=== PATIENT | female | born 2000 | race Caucasian/White ===

== ENCOUNTER 2024-01-08 23:50 | Emergency (ER) | payer OTHER, SELFPAY ==
--- NOTE | ~2024-01-08 | CT_ITS ---
Noncontrast CT scan of the cervical spine Technique: Multiple contiguous axial [address] images of the cervical spine were obtained and rec onstructed in 2D sagittal and coronal planes on the acquisition scanner. Dose reduction technique was used on this scan by utilizing automated exposure control, adjustment of the mA and/or kV according to patient size. The dose-length product (DLP) was 147.14 mGy-cm. Clinical History: Pain Findings: No fractures or dislocations. Unremarkable visualized bony structures. The intervertebral disc spaces are preserved. No prevertebral soft tissue swelling. Impression: No fracture or subluxation of the cervical spine. Reviewed, dictated and finalized at location . [employer] Impression: No fracture or subluxation of the cervical spine.
--- NOTE | ~2024-01-08 | CT_ITS ---
Non-contrast Head CT History: Head injury Technique: Axial non-contrast imaging of the brain was performed. Dose reduction technique was used on this scan by utilizing automated exposure control and iterative reconstruction technique. The dose -length product (DLP) was 681.00 mGy-cm. Findings: There is no evidence of intracranial hemorrhage, mass lesion, or acute infarct. Brain par enchyma appears normal. The ventricles and subarachnoid spaces are normal in size. The calvarium ap pears normal. The visualized paranasal sinuses and mastoid air cells are clear. Impression: No significant abnormality seen. Reviewed, dictated and finalized at [facility]. [employer] Impression: No significant abnormality seen.
[2024-01-08 23:53] VITALS: BP 120/67; PULSE 100; RESP 14; TEMP 36.6; O2SAT 100
--- NOTE | 2024-01-09 00:21 | PC.NURSE ---
Pt to CT on tele at this time.
--- NOTE | 2024-01-09 00:40 | ED_ITS ---
HPI - Head Injury General Chief complaint: Head Injury Stated complaint: Cleaning and tubs fell on head; blurriness in r ey Time Seen by Provider: 01/09/24 00:15 Source: patient Mode of arrival: ambulatory Limitations: no limitations History of Present Illness HPI Narrative: This is a 23-year-old female who presents to the ED via EMS for chief complaint of head injury that occurred just prior to arrival while she was at work. Patient reports working at [employer]. States that she was reaching up to grab something when a stack of dish tubs fell down onto the right side of her head. Reports that she had a moment of ?everything going black? but does not feel that she fully passed out. Reports that she has neck pain throughout the neck and some blurred vision. Denies extremity numbness or weakness. States she was able to ambulate after the injury. Denies any further injuries Related Data Allergies Allergy/AdvReac Type Severity Reaction Status Date / Time sumatriptan Allergy Rash Verified 01/08/24 23:59 Review of Systems Review of Systems: All systems as dictated in HPI Exam Narrative: GENERAL: Well-appearing, well-nourished, and in no acute distress. HEAD: Normocephalic, atraumatic. EYES: PERRLA and EOMI. ENT: Nares clear, no rhinorrhea or epistaxis. Mucous membranes moist. Oropharynx without tonsillar hypertrophy exudate or other lesions. NECK: Supple. No adenopathy or masses. CHEST: No respiratory distress. Clear to auscultation. No wheezes rales or rhonchi HEART: Regular rate and rhythm. No murmur heard. Normal peripheral pulses. ABDOMEN: Soft, nontender, nondistended, normal active bowel sounds. MSK: Midline cervical tenderness appreciated. No crepitus or step-off. No further spinal tenderness Extremities are benign. Normal range of motion. No edema. SKIN: Warm, dry, no rash. NEURO: Alert and oriented x4. No focal deficits. PSYCH: Normal mood and affect. Course Vital Signs Vital signs: Vital Signs Temperature 97.9 F 01/08/24 23:53 Pulse Rate 100 01/08/24 23:53 Respiratory Rate 14 01/08/24 23:53 Blood Pressure 120/67 01/08/24 23:53 Pulse Oximetry 100 01/08/24 23:53 Oxygen Delivery Room Air 01/08/24 23:53 Temperature 97.9 F 01/08/24 23:53 Pulse Rate 100 01/08/24 23:53 Respiratory Rate 14 01/08/24 23:53 Blood Pressure 120/67 01/08/24 23:53 Pulse Oximetry 100 01/08/24 23:53 Oxygen Delivery Room Air 01/08/24 23:53 MDM - Head Injury MDM Narrative Medical decision making narrative: 23-year-old female presents for head injury will work tonight with subsequent neck pain. Vitals are normal. Exam shows midline cervical tenderness. No focal neurologic deficit. CT brain and cervical spine are negative for acute osseous findings or acute intracranial findings. Patient will be discharged in stable condition. Supportive measures discussed and return precautions given. Patient is understanding and agreeable with plan for discharge with PCP follow-up. Discharge Plan Discharge Clinical Impression: Closed head injury Patient Disposition: Home, Self-Care Condition: Stable Instructions: Antibiotic Form, Concussion (ED) Additional Instructions: Exam and imaging today are reassuring. Please take muscle relaxers as needed for neck pain. Use Tylenol and ibuprofen regularly for pain control for headaches. If you have any new or worsening symptoms please return to the ER for further evaluation. Prescriptions: New cyclobenzaprine 10 mg tablet 10 mg PO HS PRN (Reason: muscle spasm) Qty: 10 0RF Follow-up/Referrals: PHYSICIAN NOT ON STAFF,NONSTAFF [Primary Care Provider] - Time of Disposition: 02:15
[2024-01-09] MEDS: ONDANSETRON INJ 4 MG/2 ML VIAL IV PUSH (01:01)
[2024-01-09] MEDS: KETOROLAC 30 MG/ML VIAL (*BKC) IV PUSH (01:01)
[2024-01-09 03:11] VITALS: BP 114/67; PULSE 99; RESP 17; O2SAT 99
== END 2024-01-09 03:13 | disposition home or self-care (01) ==
PROVIDERS: Emergency Provider Physician Assistant
DX: S09.90XA Unspecified injury of head, initial encounter (principal); W20.8XXA Other cause of strike by thrown, projected or falling object, initial encounter
CPT/HCPCS: 70450; 72125; 96374; 96375; 99284; J1885; J2405